=== PATIENT | male | born 1980 | race Caucasian/White ===

== ENCOUNTER 2017-07-31 21:08 | Emergency (ER) | payer OTHER ==
[~2017-07-31] VITALS: Ht 185.4 cm; Wt 84.1 kg
[~2017-07-31 21:08] MED LIST: CLARITIN10 MG PO; COLESTID 1GM1 G PO; FLOVENT DI100 MCG/Ac IH; NOVOLOG 100U100 U/M1; OMEPRAZOLE20 MG PO; OMEPRAZOLE40 MG PO; SUMATRIPTAN SU100 MG PO
[2017-07-31] MEDS ORDERED: BUSPAR 15MG TAB15 MG PO (21:13)
[2017-07-31 22:06] VITALS: BP 149/92
[2017-07-31] MEDS ORDERED: XANAX0.5 M1 PO (22:07)
== END 2017-07-31 22:06 | disposition home or self-care (01) ==
LOC: ED 21:08
DX: F43.0 Acute stress reaction (principal); E10.9 Type 1 diabetes mellitus without complications; Z79.4 Long term (current) use of insulin; G43.909 Migraine, unspecified, not intractable, without status migrainosus; Z87.11 Personal history of peptic ulcer disease; Z88.0 Allergy status to penicillin; Z88.2 Allergy status to sulfonamides

== ENCOUNTER → 2019-12-27 | Outpatient (CLI) | payer BC ==
[~2019-12-27] MED LIST changes: +BUSPAR 15MG TAB15 MG PO; +XANAX0.5 M1 PO
[2019-12-27 11:33] LABS: POTASSIUM 4.4 mmol/L (3.5-5.1)
[2019-12-27 11:34] LABS: ALBUMIN 4.3 g/dL (3.5-5.0)
[2019-12-27 11:35] LABS: CALCIUM 9.1 mg/dL (8.3-10.5)
[2019-12-27 11:36] LABS: TOTAL PROTEIN 7.6 g/dL (6.4-8.3)
[2019-12-27 11:38] LABS: TOTAL BILIRUBIN 1.2 mg/dL (0.2-1.2)
== END ==
LOC: LAB 11:17
PROVIDERS: Family Medicine
DX: Z00.00 Encounter for general adult medical examination without abnormal findings (principal); E10.9 Type 1 diabetes mellitus without complications; Z82.49 Family history of ischemic heart disease and other diseases of the circulatory system

== ENCOUNTER → 2020-12-17 | Outpatient (CLI) | payer BC | LOC: LAB 11:32 | DX: E10.9 Type 1 diabetes mellitus without complications (principal) ==

== ENCOUNTER → 2021-03-31 | Outpatient (CLI) | payer BC ==
[2021-04-01 00:36] LABS: HEPATITIS C VIRUS ANTIBODY Negative (Negative)
[2021-04-01 01:00] LABS: SYPHILIS AB SCREEN w REFLEX Negative (Negative)
== END ==
LOC: LAB 14:07
PROVIDERS: Family Medicine
DX: Z11.3 Encounter for screening for infections with a predominantly sexual mode of transmission (principal)

== ENCOUNTER → 2022-04-11 | Outpatient (CLI) | payer BC ==
[2022-04-11 12:13] LABS: POTASSIUM 4.2 mmol/L (3.5-5.1)
[2022-04-11 12:14] LABS: ALBUMIN 4.1 g/dL (3.5-5.0)
[2022-04-11 12:15] LABS: CALCIUM 9.5 mg/dL (8.3-10.5)
[2022-04-11 12:18] LABS: TOTAL BILIRUBIN 1.1 mg/dL (0.2-1.2)
== END ==
LOC: LAB 11:46
PROVIDERS: Family Medicine
DX: Z00.00 Encounter for general adult medical examination without abnormal findings (principal); J45.909 Unspecified asthma, uncomplicated; I10 Essential (primary) hypertension; K29.50 Unspecified chronic gastritis without bleeding; F41.1 Generalized anxiety disorder; G43.109 Migraine with aura, not intractable, without status migrainosus; E10.9 Type 1 diabetes mellitus without complications

== ENCOUNTER → 2024-06-03 | Outpatient (CLI) | payer OTHER ==
[2024-06-03 12:25] LABS: CALCIUM 9.9 mg/dL (8.3-10.5)
== END ==
LOC: LAB 12:05
PROVIDERS: Family Medicine
DX: I10 Essential (primary) hypertension (principal); E10.9 Type 1 diabetes mellitus without complications